=== PATIENT | male | born 1950 | race Caucasian/White ===

== ENCOUNTER 2018-01-20 22:40 | Inpatient (IN) | payer MEDICARE ==
[~2018-01-20] VITALS: Ht 182.9 cm; Wt 103.8 kg
[~2018-01-20 22:40] MED LIST: ACIDOPHILU4 PO; AMBIEN5 MG PO; ATRIPLA PO; BENZONATATE200 MG PO; BISOPRL/HCTZ PO; CALCIUM 500 PO; CO Q 1010 MG PO; DOXYCYCL HYC100 MG PO; FLUTICASONE PR50 MCG; GLUCOSAMINE CHO1 CAP PO; HYDROCORTISO2.51 EX; LEVITRA10 MG PO; LEVOTHYROXIN125 MC1 PO; MICARDIS80 MG PO; MUCINEX600 MG PO; MULTI PO; PREDNISONE20 MG PO; PRIMATINE; SAW PALMETTO1 CAP
[2018-01-20] MEDS ORDERED: SIMVASTATIN10 MG PO (22:58)
[2018-01-20] MEDS ORDERED: METFORMIN500 MG PO (22:58)
[2018-01-20 23:41] LABS: HEMATOCRIT 41.4 % (39.0-50.0); HEMOGLOBIN 14.8 g/dl (14.0-18.0); IMMATURE GRANULOCYTES 0.2 % (0.0-1.0); MEAN CORPUSCULAR HGB 32.9 pG CALC (26.0-32.0); MEAN CORPUSCULAR HGB CONC 35.7 g/L CALC (32.0-36.0); NEUT# 4.83 thou/uL (1.82-7.42); RED BLOOD COUNT 4.5 mill/uL (4.70-6.10); RED CELL DISTRI WIDTH 12.2 % (11.5-15.5)
[2018-01-20 23:50] LABS: ALBUMIN 4.3 g/dL (3.2-5.0); ALKALINE PHOSPHATASE 99 u/l (38-126); BILIRUBIN, TOTAL 0.6 mg/dL (0.0-1.4); BUN 33 mg/dL (8-23); BUN/CREATININE RATIO 26 (12-20 (CALC)); CARBON DIOXIDE 16 mmol/l (22-30); CHLORIDE 97 mmol/l (95-108); CREATININE 1.3 mg/dL (0.7-1.3); GFR 55 ML/MIN (>=60 (CALC)); GFR FOR AFR.AMER. > 60 ML/MIN (>=60 (CALC)); SGOT/AST 92 u/l (19-48); SGPT/ALT 134 u/l (11-66); TOTAL PROTEIN 7.5 g/dL (6.3-8.2)
[2018-01-21] VITALS (19 sets, daily range): BP systolic 95–140; BP diastolic 50–91
[2018-01-21] LABS: ANION GAP 23 (6-22 (CALC))
[2018-01-21 00:01] LABS: SODIUM 131 mmol/l (137-146)
[2018-01-21 01:30] LABS: URINE BILIRUBIN - DIPSTICK NEGATIVE (NEGATIVE); URINE BLOOD DIPSTICK NEGATIVE (NEGATIVE); URINE COLOR YELLOW; URINE GLUCOSE - DIPSTICK >=1000 mg/dL (NEGATIVE); URINE KETONE 15 mg/dL (NEGATIVE); URINE LEUK ESTERASE NEGATIVE (NEGATIVE); URINE NITRITE - DIPSTICK NEGATIVE (Negative); URINE PROTEIN - DIPSTICK NEGATIVE (NEG-TRACE); URINE SPECIFIC GRAVITY <=1.005; URINE UROBILINOGEN - DIPSTICK 0.2 E.U./dL (0.2)
[2018-01-21 01:34] LABS: URINE CLARITY CLEAR
[2018-01-21 02:22] LABS: BUN 30 mg/dL (8-23); BUN/CREATININE RATIO 24 (12-20 (CALC)); CHLORIDE 103 mmol/l (95-108); CREATININE 1.3 mg/dL (0.7-1.3); GFR 55 ML/MIN (>=60 (CALC)); GFR FOR AFR.AMER. > 60 ML/MIN (>=60 (CALC)); POTASSIUM 4.5 mmol/l (3.5-5.1); SODIUM 134 mmol/l (137-146)
[2018-01-21 02:23] LABS: ANION GAP 15 (6-22 (CALC))
[2018-01-21 02:24] LABS: CARBON DIOXIDE 21 mmol/l (22-30)
[2018-01-21 05:18] LABS: ANION GAP 19 (6-22 (CALC)); BUN 29 mg/dL (8-23); BUN/CREATININE RATIO 25 (12-20 (CALC)); CARBON DIOXIDE 23 mmol/l (22-30); CHLORIDE 103 mmol/l (95-108); CREATININE 1.2 mg/dL (0.7-1.3); GFR 60 ML/MIN (>=60 (CALC)); GFR FOR AFR.AMER. > 60 ML/MIN (>=60 (CALC)); MAGNESIUM 2.1 mg/dL (1.6-2.3); POTASSIUM 4.1 mmol/l (3.5-5.1)
[2018-01-21 05:21] LABS: SODIUM 141 mmol/l (137-146)
[2018-01-21 09:42] LABS: ANION GAP 17 (6-22 (CALC)); BUN 25 mg/dL (8-23); BUN/CREATININE RATIO 23 (12-20 (CALC)); CARBON DIOXIDE 23 mmol/l (22-30); CHLORIDE 106 mmol/l (95-108); CREATININE 1.1 mg/dL (0.7-1.3); GFR > 60 ML/MIN (>=60 (CALC)); GFR FOR AFR.AMER. > 60 ML/MIN (>=60 (CALC)); POTASSIUM 3.8 mmol/l (3.5-5.1); SODIUM 143 mmol/l (137-146)
[2018-01-22] VITALS (9 sets, daily range): BP systolic 101–131; BP diastolic 56–90
[2018-01-22] MEDS ORDERED: LEVOTHYROXIN150 MC1 PO (09:52)
[2018-01-22] MEDS ORDERED: LEVEMIR100 UNIT/M SC (09:52)
[2018-01-23] MEDS ORDERED: NOVOLOG FL100 UNIT/M SC (00:10)
== END 2018-01-22 10:55 | disposition home or self-care (01) | DRG 639 ==
LOC: ED 22:40 → ED-I 01-21 00:50 → ED 01-21 01:09 → ICU 01-21 01:10
PROVIDERS: Family Medicine; Nurse Practitioner; ADMIT Internal Medicine; ATTEND Internal Medicine
DX: E11.10 Type 2 diabetes mellitus with ketoacidosis without coma (principal); E03.9 Hypothyroidism, unspecified; I10 Essential (primary) hypertension; R74.8 Abnormal levels of other serum enzymes; Z79.84 Long term (current) use of oral hypoglycemic drugs; Z91.14 Patient's other noncompliance with medication regimen
CPT/HCPCS: J1650

== ENCOUNTER 2018-01-22 22:02 | Emergency (ER) | payer MEDICARE ==
[~2018-01-22] VITALS: Ht 182.9 cm; Wt 106.2 kg
[~2018-01-22 22:02] MED LIST changes: +LEVEMIR100 UNIT/M SC; +LEVOTHYROXIN150 MC1 PO; +METFORMIN500 MG PO; +SIMVASTATIN10 MG PO
[2018-01-23] MEDS ORDERED: NOVOLOG FL100 UNIT/M SC (00:10)
[2018-01-23 00:20] VITALS: BP 127/80
== END 2018-01-23 00:20 | disposition home or self-care (01) ==
LOC: ED 22:02
DX: E11.65 Type 2 diabetes mellitus with hyperglycemia (principal); I10 Essential (primary) hypertension; E03.9 Hypothyroidism, unspecified

== ENCOUNTER → 2018-11-23 | Outpatient (REF) | payer MEDICARE ==
[~2018-11-23] MED LIST changes: +NOVOLOG FL100 UNIT/M SC
[2018-11-23 11:34] LABS: ALBUMIN 4.4 g/dL (3.2-5.0); ALKALINE PHOSPHATASE 60 u/l (38-126); ANION GAP 15 (6-22 (CALC)); BUN 24 mg/dL (8-23); BUN/CREATININE RATIO 20 (12-20 (CALC)); CARBON DIOXIDE 22 mmol/l (22-30); CHLORIDE 105 mmol/l (95-108); CREATININE 1.2 mg/dL (0.7-1.3); GFR 60 ML/MIN (>=60 (CALC)); GFR FOR AFR.AMER. > 60 ML/MIN (>=60 (CALC)); POTASSIUM 4.9 mmol/l (3.5-5.1); SGOT/AST 57 u/l (19-48); SODIUM 138 mmol/l (137-146); TOTAL PROTEIN 7.2 g/dL (6.3-8.2)
[2018-11-23 11:35] LABS: BILIRUBIN, TOTAL 0.8 mg/dL (0.0-1.4)
[2018-11-23 12:07] LABS: TSH, 3RD GENERATION 0.05 uIU/mL (0.47 - 4.68)
== END | disposition home or self-care (01) ==
LOC: LAB 10:07
PROVIDERS: ATTEND Nurse Practitioner Family
DX: I10 Essential (primary) hypertension (principal); E78.2 Mixed hyperlipidemia; E11.65 Type 2 diabetes mellitus with hyperglycemia; E03.9 Hypothyroidism, unspecified

== ENCOUNTER 2021-06-28 11:13 | Emergency (ER) | payer MEDICARE ==
[~2021-06-28] VITALS: Ht 182.9 cm; Wt 120.0 kg
[~2021-06-28 11:13] MED LIST changes: +ASPIRIN81 MG PO; +HUMALOG100 UNIT/M SC; +LEVOTHYROXIN125 MCG PO; +MONTELUKAST SOD10 MG PO; +NORVASC5 M1 PO
[2021-06-28 12:25] LABS: HEMATOCRIT 40.1 % (39.0-50.0); HEMOGLOBIN 13.3 g/dl (14.0-18.0); IMMATURE GRANULOCYTES 0.6 % (0.0-5.0); MEAN CORPUSCULAR HGB 32.5 pG CALC (26.0-32.0); MEAN CORPUSCULAR HGB CONC 33.2 g/dL CAL (32.0-36.0); NEUT# 3.51 thou/uL (1.82-7.42); RED BLOOD COUNT 4.09 mill/uL (4.70-6.10); RED CELL DISTRI WIDTH 12.8 % (11.5-15.5)
[2021-06-28 12:43] LABS: ALBUMIN 4.4 g/dL (3.2-5.0); ALKALINE PHOSPHATASE 67 u/l (38-126); ANION GAP 15 (6-22 (CALC)); BILIRUBIN, TOTAL 0.9 mg/dL (0.0-1.4); BUN 20 mg/dL (8-23); BUN/CREATININE RATIO 16 (12-20 (CALC)); CARBON DIOXIDE 21 mmol/l (22-30); CHLORIDE 108 mmol/l (95-108); CREATININE 1.3 mg/dL (0.7-1.3); GFR 54 ML/MIN (>=60 (CALC)); GFR FOR AFR.AMER. > 60 ML/MIN (>=60 (CALC)); POTASSIUM 4.3 mmol/l (3.5-5.1); SGOT/AST 62 u/l (19-48); SODIUM 139 mmol/l (137-146); TOTAL PROTEIN 7.8 g/dL (6.3-8.2)
[2021-06-28 12:48] LABS: ACT PARTIAL THROMBO TIME 23.5 SECONDS (20.0-32.5); INTERNATIONAL NORMALIZED RATIO 1.1 RATIO (0.7-1.3)
[2021-06-28 16:20] VITALS: BP 141/68
== END 2021-06-28 15:40 | disposition short-term general hospital (02) ==
LOC: ED 11:13
PROVIDERS: Emergency Medicine
DX: I26.99 Other pulmonary embolism without acute cor pulmonale (principal); I82.411 Acute embolism and thrombosis of right femoral vein; I82.441 Acute embolism and thrombosis of right tibial vein; I10 Essential (primary) hypertension; E11.9 Type 2 diabetes mellitus without complications; E03.9 Hypothyroidism, unspecified; Z79.84 Long term (current) use of oral hypoglycemic drugs; Z79.4 Long term (current) use of insulin; R60.0 Localized edema; R05.9 Cough, unspecified; I82.401 Acute embolism and thrombosis of unspecified deep veins of right lower extremity
CPT/HCPCS: J1644; Q9967

== ENCOUNTER 2023-02-20 18:59 | Emergency (ER) | payer MEDICARE ==
[~2023-02-20] VITALS: Ht 182.9 cm; Wt 74.0 kg
[2023-02-20 19:42] VITALS: BP 138/87
[2023-02-20 20:00] VITALS: BP 122/77
[2023-02-20 20:30] VITALS: BP 125/69
[2023-02-20 20:42] VITALS: BP 125/69
== END 2023-02-20 21:01 | disposition home or self-care (01) ==
LOC: ED 18:59
PROC: 0HQEXZZ Repair Left Lower Arm Skin, External Approach (ICD-10-PCS; principal; 2023-02-20)
DX: S51.812A Laceration without foreign body of left forearm, initial encounter (principal); W25.XXXA Contact with sharp glass, initial encounter; Y92.009 Unspecified place in unspecified non-institutional (private) residence as the place of occurrence of the external cause